=== PATIENT | male | born 1945 | race Caucasian/White ===

== ENCOUNTER 2023-11-24 06:58 | Outpatient (RCR) | payer MEDICARE, OTHER, SELFPAY | END 2023-11-24 23:59 | disposition home or self-care (01) | LOC: ROT 06:58 | PROVIDERS: ATTENDING PHYSICIAN Orthopaedic Surgery; PRIMARYCARE PHYSICIAN Family Medicine | DX: Z47.89 Encounter for other orthopedic aftercare (principal); M72.0 Palmar fascial fibromatosis [Dupuytren]; Z73.6 Limitation of activities due to disability | CPT/HCPCS: 97535; 97760 ==

== ENCOUNTER → 2023-12-07 07:03 | Outpatient (REF) | payer MEDICARE, OTHER, SELFPAY | LOC: RAD 07:03 | PROVIDERS: ATTENDING PHYSICIAN Family Medicine | DX: I71.40 Abdominal aortic aneurysm, without rupture, unspecified (principal) | CPT/HCPCS: 76770 ==

== ENCOUNTER → 2024-03-26 11:21 | Outpatient (REF) | payer MEDICARE, OTHER, SELFPAY | LOC: RAD 11:21 | PROVIDERS: ATTENDING PHYSICIAN Orthopaedic Surgery; FAMILY PHYSICIAN Family Medicine | DX: M25.512 Pain in left shoulder (principal); M25.522 Pain in left elbow | CPT/HCPCS: 73030; 73080 ==

== ENCOUNTER → 2024-04-24 06:57 | Outpatient (REF) | payer MEDICARE, OTHER, SELFPAY | LOC: PAVMRI 06:57 | PROVIDERS: ATTENDING PHYSICIAN Family Medicine | DX: M54.12 Radiculopathy, cervical region (principal) | CPT/HCPCS: 72141 ==

== ENCOUNTER → 2024-07-31 06:21 | Day surgery (SDC) | payer MEDICARE, OTHER, SELFPAY ==
[2024-07-31 07:12] LABS: Glucose - Point of Care 91 mg/dl (70-99)
== END ==
LOC: GI 06:21
PROVIDERS: ATTENDING PHYSICIAN Surgery; FAMILY PHYSICIAN Family Medicine
DX: Z12.11 Encounter for screening for malignant neoplasm of colon (principal); Z86.0100 Personal history of colon polyps, unspecified; K64.8 Other hemorrhoids; K57.30 Diverticulosis of large intestine without perforation or abscess without bleeding; K63.5 Polyp of colon
CPT/HCPCS: 45385; 45380; 88305; 82962

== ENCOUNTER → 2025-04-30 06:33 | Outpatient (REF) | payer MEDICARE, OTHER, SELFPAY | LOC: RAD 06:33 | PROVIDERS: ATTENDING PHYSICIAN Family Medicine | DX: I71.40 Abdominal aortic aneurysm, without rupture, unspecified (principal) | CPT/HCPCS: 76770 ==

== ENCOUNTER 2025-09-11 13:17 | Emergency (ER) | payer MEDICARE, OTHER, SELFPAY ==
[2025-09-11 13:17] VITALS: BMI 28.2
[2025-09-11 13:42] VITALS: BP 134/65
[2025-09-11 14:13] LABS: Urine Character Slightly Cloudy (Clear)
[2025-09-11 14:22] LABS: Urine Red Blood Cell 0-2 /HPF (0-2); Urine Squamous Cell 0-2 /LPF (Few)
[2025-09-11 14:23] LABS: Urine White Cell 80-90 /HPF (0-5)
[2025-09-11 16:28] LABS: Hematocrit 36.6 % (39.0-52.0); Hemoglobin 12.4 g/dL (13.0-18.0); Mean Corp Hgb Conc. 33.9 g/dL (33.0-37.0); Mean Corpuscular Volume 90.1 fL (80.0-94.0); Nucleated Red Blood Cells % 0 % (-); Platelet Count 323 10^3/uL (130-400); Red Cell Dist. Width 13.7 % (11.5-14.5)
[2025-09-11 16:39] LABS: ALT (SGPT) 26 U/L (0-50); AST (SGOT) 27 U/L (17-59); Albumin 3.8 g/dl (3.5-5.0); Alkaline Phosphatase 96 U/L (38-126); Blood Urea Nitrogen 18 mg/dl (9-20); Calcium 9.2 mg/dl (8.4-10.2); Carbon Dioxide 30 mmol/L (22-30); Chloride 106 mmol/L (98-107); Glucose 85 mg/dl (70-99); Potassium 3.9 mmol/L (3.5-5.1); Sodium 140 mmol/L (135-145); Total Protein 6.7 g/dl (6.3-8.2); eGFR > 60.00
[2025-09-11 18:00] VITALS: BP 160/76
--- NOTE | 2025-09-11 18:10 | ED.GENMED ---
History of Present Illness
General
Chief Complaint: Urinary Symptoms
Source: patient
Exam Limitations: none
Time Seen by Provider: 09/11/25 17:35
Nursing documentation reviewed up to this point in time: agreed with
History of Present Illness
History of Present Illness:
Patient is a 79-year-old male who presents to the emergency department for evaluation of hematuria. Patient states that midmorning today he had an episode of 'pink-tinged' urine. He then had an additional episode this afternoon. Since arriving to
the emergency department he states he has urinated 1 time and did not notice any red/pink discoloration. He denies any dysuria. He does not believe that he passed any blood clots. He denies any fever, chills, abdominal pain, unilateral flank
pain. No shortness of breath, lightheadedness, or episode of syncope.
Patient does have some mild lower back discomfort on both sides however states he has had this since a mechanical fall last week. He has been ambulating without difficulty. He is not on any oral anticoagulation.
He does report a similar episode a few years ago where he was found to have a urinary tract infection and treated with a course of oral antibiotics with resolution in hematuria
Patient is scheduled for total knee replacement on Tuesday with Dr. Stinson.
Review of Systems
Review of Systems
Allergies reviewed?: Yes
All Other Systems: ROS reviewed and negative except as documented in HPI and ROS
Phy Exam
Physical Exam
Physical Exam:
Vitals: Hypertensive, otherwise vital signs stable. Afebrile
General: Patient is very well appearing, no acute distress. Nontoxic appearing
Skin: Warm and dry, no rashes or lesions
Head: Normocephalic, atraumatic
Eyes: Sclera nonicteric. EOMs intact. No nystagmus.
Throat: Protecting airway
Neck: Normal ROM, no cervical spine tenderness, no meningismus
Cardiac: Regular rate and rhythm, no murmurs.
Pulm: Normal respiratory effort, no wheezes, rales, rhonchi heard on exam
.
Abdomen: Abdomen soft and nontender.
Back: No midline spinal tenderness. No CVA tenderness. No ecchymoses.
Extremities: No evidence of cyanosis or edema. Strength 5/5 in bilateral upper and lower extremity
Neuro: AAOx3. Grossly intact
Psychiatric: Normal affect.
Course
Orders/Labs/Results
Orders:
Orders
09/11/25 13:55
Urinalysis Reflex To Culture Urgent
Date Specimen was Collected: 09/11/25
Time Specimen was Collected: 13:48
Urine Microscopic Reflex Cult Urgent
Urine Culture Urgent
[facility]SMANE Source: U
Specimen Description:
Date Specimen was Collected: 09/11/25
Time Specimen was Collected: 13:48
09/11/25 16:02
Complete Blood Count/With Diff Urgent
Comprehensive Metabolic Panel Urgent
09/11/25 18:11
Abdomen/Pelvis wo Contrast CT [CT Abd/pelvis Wo Iv Cont] Urgent
Comment:
Reason For Exam: hematuria, L flank pain
09/11/25 20:29
Cefuroxime Axetil [Ceftin] 500 mg PO NOW STA
Abnormal Lab Results
09/11/25 09/11/25
13:55 16:02
RBC 4.06 L 10^6/uL
(4.70-6.10)
Hgb 12.4 L g/dL
(13.0-18.0)
Hct 36.6 L %
(39.0-52.0)
Absolute Monos (auto) 0.7 H 10^3/uL
(0.1-0.6)
Lymphocytes % 17.2 L %
(20.5-51.1)
Ur Occult Blood Reflex 4+ A
(Negative)
Leukocyte Esterase Rfl 3+ A
(Negative)
Urine WBC (Reflex) 80-90 A /HPF
(0-5)
Urine Bacteria (Reflex) Few A
(Negative)
Urine Albumin (Reflex) 4+ A
(Neg - Trace)
09/11/25 16:02
09/11/25 16:02
Vital Signs
Initial and Last Documented VS:
Initial Vital Signs
Temp Pulse Resp BP Pulse Ox
97.9 F 70 18 134/65 98
09/11/25 13:42 09/11/25 13:42 09/11/25 13:42 09/11/25 13:42 09/11/25 13:42
Last Documented Vital Signs
Temp Pulse Resp BP Pulse Ox
98.3 F 82 24 157/71 97
09/11/25 17:55 09/11/25 20:45 09/11/25 20:45 09/11/25 20:11 09/11/25 20:15
MDM/Problems Addressed
Differential Diagnosis Includes:
Not limited to: Hemorrhagic cystitis, obstructing ureteral stone, pyelonephritis, prostamegaly, malignancy, etc.
MDM/Problems Addressed:
79-year-old male with two episodes of hematuria today. No associated fever, dysuria, abdominal or unilateral flank pain. He does have mild tenderness across lower back from mechanical fall about one week ago. No oral anticoagulation use. Vitals
stable. On arrival, patient appears well. Abdomen benign. No CVA tenderness. Cardio/pulmonary assessment unremarkable.
Differential as above.
Labs were sent prior to evaluation without clinically significant abnormalities. Hemoglobin fine. UA does appear someone infected with 80�90 WBCs and 3+ leukocyte races. Will add on CT scan abdomen/pelvis without contrast to rule out obstructing
stone.
Update- CT scan shows no evidence of obstructing stones. Prostamegaly and bladder wall thickening noted.
He has urinated in emergency department without any evidence of bleeding.
Will treat patient with a course of oral antibiotics for suspected hemorrhagic cystitis. He states he has tolerated cephalosporins in the past.
Did express importance of close urology follow up for further management of prostatomegaly and possible mass noted. Patient expressed verbal understanding. Strict returns precautions discussed.
Chronic conditions affecting care:
N/A
Acute Exacerbation and/or Progression of Chronic Illness:
N/A
*Radiology
Radiology exam reviewed: radiology read reviewed
*Pulse Oximetry
SaO2: 97
Oxygen Mode of Delivery: Room air
Patient hypoxic: no
*EKG
Interpreted by ED Provider?: NA
*Spa Director/Finance Interpretation
Rate: Spa Director/Finance- N/A
*Critical Care Note
Total Time (30-74mins, 75-104mins- exclusive of procedures): Not Applicable
ED Attending Note
-
Portions of this chart may have been created with voice recognition software.� Occasional wrong word or��sound alike� substitutions may have occurred due to the inherent limitations of voice recognition software.
Discharge Plan
Departure
Patient Disposition: Home (Routine Discharge)
Date of Disposition: 09/11/25
Time of Disposition: 20:21
Patient with high blood pressure during this ER visit?: Yes
Condition: Good
Covid-19: Not Applicable
Discharge Problem:
Acute cystitis with hematuria
Instructions: Urinary Tract Infection, Adult (DC), Blood in the Urine (Hematuria), Adult (DC), BLOOD PRESSURE
Prescriptions:
New
cefuroxime axetil 500 mg tablet
500 mg PO BID 7 Days Qty: 14 0RF
Referrals:
Samuel Knight Jr., MD [Active, Urology] - Next open appointment
UNKNOWN - PT DOES,NOT KNOW [Unknown Provider]
Activity Restrictions/Additional Instructions:
RETURN TO THE EMERGENCY DEPARTMENT WITH ANY FEVER, SEVERE ABDOMINAL OR BACK PAIN, INABILITY TO URINATE, PERSISTENT BLOOD IN URINE, WEAKNESS, WORSENING IN CURRENT, OR ANY OTHER CONCERNS
- A prescription has been sent to your pharmacy to treat a possible UTI. Please take as directed. Please stop if you develop any signs of an allergic reaction.
- Your CT scan showed a significantly enlarged prostate and unable to exclude a mass at the base. You should follow-up with a urologist outpatient for further evaluation and/or management.
- Please contact the orthopedic tomorrow prior to your scheduled surgery
Monitor your symptoms closely and return to the emergency department with any acute worsening/new symptoms or any other concerns
Interventions
Interventions:
*Risk Screen - Suicide Last Done: 09/11/25 13:42
*General Assessment Last Done: 09/11/25 17:56
*Neglect/Abuse Screening Last Done: 09/11/25 19:50
*ED COVID-19 Vaccine History Last Done: 09/11/25 17:56
*ED Influenza Vaccine History Last Done: 09/11/25 17:56
[facility] Risk Assessment Tool Last Done: 09/11/25 13:17
*Nursing Disposition Last Done: 09/11/25 21:14
ED-Male Genitourinary Assessment Last Done: 09/11/25 17:59
Discharge Date and Time
Discharge Date/Time: 09/11/25 21:15
Print Language: DOMINICAN
[2025-09-11 19:00] VITALS: BP 134/59
[2025-09-11 20:11] VITALS: BP 157/71
[2025-09-11] MEDS: CEFTIN 500 MG PO (21:01)
== END 2025-09-11 21:15 | disposition home or self-care (01) ==
LOC: EMR 13:17
PROVIDERS: Emergency Medicine; Student in an Organized Health Care Education/Training Program; EMERGENCY PHYSICIAN Emergency Medicine; FAMILY PHYSICIAN Family Medicine
DX: N30.01 Acute cystitis with hematuria (principal); M54.50 Low back pain, unspecified
CPT/HCPCS: 99284; 74176; 80053; 81003; 81015; 85025; 87086